=== PATIENT | female | born 1980 | race Caucasian/White ===

== ENCOUNTER 2017-02-07 15:43 | Emergency (ER) | payer SELFPAY ==
[~2017-02-07 15:43] MED LIST: ABILIFY20 MG; ADVIL200 MG; AMOXICILLIN875 MG PO; BACTRIM DS TABL1 TAB PO; BACTRIM DS1 TAB PO; CARAFATE1 G PO; CIPRO500 MG PO; CLEOCIN HCL150 MG; CLINDAMYCIN HC300 MG PO; DOLACET 5/500 C1 CAP PO; IBUPROFEN800 MG; IMITREX50 MG; LEVBID0.375 MG; LITHIUM CARBON300; LITHIUM CARBON300 MG; LORTAB 5/500 TA1 TAB PO; LORTAB 7.5/5001 TAB PO; MELATONIN; MOBIC7.5 MG; MOTRIN400 MG; NO HOME MEDS; NO MEDICATIONS; NORCO 10/325 TA1 TAB PO; NORCO 5/325 TAB1 TAB PO; PERCOCET 5/3251 TAB PO; PHENERGAN50 MG; TYLENOL325 MG; ULTRAM50 MG; VICODIN 5/500 T1 TAB PO
[2017-02-07] MEDS ORDERED: LOPRESSOR50 M1 PO (16:42)
[2017-02-07] MEDS ORDERED: TRIAMCINOLONE A15 G2 TP (16:43)
[2017-02-07] MEDS ORDERED: PROPRANOLOL HC160 M1 PO (16:43)
[2017-02-07] MEDS ORDERED: PRINIVIL20 M1 PO (16:43)
[2017-02-07] MEDS ORDERED: ATORVASTATIN CA10 M1 PO (16:44)
[2017-02-07] MEDS ORDERED: HYDROCODON-ACE1 EA16 PO (16:46)
[2017-02-07] MEDS ORDERED: CYCLOBENZAPRINE10 M1 PO ×2 (16:46→20:42)
[2017-02-07] MEDS ORDERED: IBUPROFEN800 M1 PO (16:47)
[2017-02-07 17:04] LABS: BASO % 0.3 % (0-2); EOS % 3.5 % (0-7); EOSINOPHIL ABSOLUTE COUNT 0.4 tho/cmm (0.0-0.7); HCT-HEMATOCRIT 41.1 % (34.0-49.0); HGB-HEMOGLOBIN 13.9 gm/dl (12.0-15.5); IMMATURE GRANULOCYTES ABSOLUTE 0.02 tho/cmm (0-0.03); IMMATURE GRANULOCYTES PERCENT 0.2 % (0-0.3); LYMPH % 15.7 % (20-45); LYMPH ABSOLUTE COUNT 1.6 tho/cmm (0.8-4.5); MCH (MEAN CORPUSCULAR HGB) 29.3 pg (28.0-32.0); MCHC MEAN CORPUSCULAR HGB CONC 33.8 % (32.0-36.0); MCV (MEAN CELL VOLUME) 86.7 fl (82.0-96.0); MEAN PLATELET VOLUME 10.1 cmc (9.4-12.4); MONO % 7.2 % (0-12); MONOCYTE ABSOLUTE COUNT 0.7 tho/cmm (0.0-1.2); NEUTROPHIL ABSOLUTE COUNT 7.4 tho/cmm (1.6-8.0); NEUTROPHIL-AUTOMATED 7.4 tho/cmm (1.6-8.0); NEUTROPHILS % 73.1 % (40-80); PLATELET COUNT 302 tho/cmm (150-450); RED BLOOD COUNT 4.74 mil/cmm (4.00-5.20); RED CELL DISTRIBUTION WIDTH 13.4 % (12.4-16.4); WHITE BLOOD COUNT 10.1 tho/cmm (4.0-10.0)
[2017-02-07 17:15] LABS: ANION GAP 12 mmol/L (0-20); BLOOD UREA NITROGEN 11 mg/dl (6-24); CALCIUM 9.5 mg/dl (8.5-10.5); CARBON DIOXIDE-VENOUS 26 mmol/L (22-32); CHLORIDE 104 mmol/l (96-110); CREATININE 0.82 mg/dl (0.50-1.10); GLUCOSE 90 mg/dL (70-110); POTASSIUM 3.9 mmol/L (3.7-5.1); SODIUM 138 mmol/L (135-145); eGFR VALUE FOR BLACK >90 mL/Min
[2017-02-07 19:03] LABS: URINE BILIRUBIN NEGATIVE (NEG); URINE BLOOD MODERATE (NEG); URINE GLUCOSE (UA) NEGATIVE (NEG); URINE KETONE NEGATIVE (NEG); URINE LEUKOCYTE ESTERASE POSITIVE (NEG); URINE NITRITE NEGATIVE (NEG); URINE PROTEIN SMALL (NEG); URINE SPECIFIC GRAVITY 1.025 (1.003-1.030)
[2017-02-07 19:04] LABS: URINE APPEARANCE CLOUDY; URINE COLOR YELLOW
[2017-02-07 19:06] LABS: URINE AMORPHOUS 2+
[2017-02-07 19:07] LABS: URINE RBC 0-3 /[HPF] (0-5)
[2017-02-07] MEDS ORDERED: NORCO 5-325 TA1 EACH PO (20:42)
[2017-02-07] MEDS ORDERED: PROMETHAZINE-C118 ML PO (20:42)
== END 2017-02-07 20:47 ==
LOC: EDMED 15:43
PROVIDERS: Emergency Medicine
DX: J06.9 Acute upper respiratory infection, unspecified (principal); M54.16 Radiculopathy, lumbar region